=== PATIENT | male | born 1955 | race Caucasian/White ===

== ENCOUNTER 2017-11-17 04:58 | Emergency (ER) | payer MEDICARE ==
[~2017-11-17] VITALS: Ht 172.7 cm; Wt 79.5 kg
[2017-11-17] MEDS ORDERED: KETOROLAC 30 MG/1 ML ONE (05:24)
[2017-11-17] MEDS ORDERED: ONDANSETRON ODT 4 MG ONE (05:26)
[2017-11-17] MEDS ORDERED: SODIUM CHLORIDE 0.9% 1,000ML IVBOLUS ONE (05:30)
[2017-11-17] MEDS ORDERED: SODIUM CHLORIDE FLUSH 10ML SYR IVF ONE (05:30)
[2017-11-17] MEDS ORDERED: KETOROLAC 30 MG/1 ML IVPush ONE (05:30)
[2017-11-17] MEDS ORDERED: ONDANSETRON ODT 4 MG PO ONE (05:30)
[2017-11-17 05:54] LABS: BASOPHILS # (AUTO) 0.02 x10^3/uL (0-0.1); BASOPHILS % (AUTO) 0 % (0-1); EOSINOPHILS # (AUTO) 0.11 x10^3/uL (0-0.4); EOSINOPHILS % (AUTO) 1 % (1-7); LYMPHOCYTES # (AUTO) 1.96 x10^3/uL (1-3.4); LYMPHOCYTES % (AUTO) 13 % (22-44); MD NO; MEAN CORPUSCULAR HEMOGLOBIN 31.3 pg (27.5-34.5); MEAN CORPUSCULAR HGB CONC 33.7 g/dL (33.2-36.2); MEAN PLATELET VOLUME 7.2 fL (7.4-10.4); MONOCYTES # (AUTO) 0.96 x10^3/uL (0.2-0.8); MONOCYTES % (AUTO) 6 % (2-9); NEUTROPHILS # (AUTO) 12.08 x10^3/uL (1.8-6.8); NEUTROPHILS % (AUTO) 80 % (42-75); PLATELET COUNT 264 x10^3/uL (130-400); RED BLOOD COUNT 5.42 x10^6/uL (4.38-5.82); RED CELL DISTRIBUTION WIDTH 13.5 % (9.4-14.8)
[2017-11-17 06:04] LABS: ALANINE AMINOTRANSFERASE 116 U/L (12-78); ALBUMIN 3.8 g/dL (3.4-5.0); ANION GAP 9 mmol/L (5-15); CALCIUM 8.4 mg/dL (8.5-10.1); CHLORIDE 106 mmol/L (98-107); CREATININE 0.97 mg/dL (0.7-1.3)
[2017-11-17 06:07] LABS: ALKALINE PHOSPHATASE 106 U/L (45-117); BILIRUBIN,TOTAL 0.7 mg/dL (0.2-1.0); TOTAL PROTEIN 7.3 g/dL (6.4-8.2)
[2017-11-17] MEDS ORDERED: MAALOX/HYOSCYAMINE/LIDOCAINE 45 ML BTL ONE (07:24)
[2017-11-17] MEDS ORDERED: MAALOX/HYOSCYAMINE/LIDOCAINE 45 ML BTL PO ONE (07:30)
[2017-11-17 07:59] LABS: CULTURE INDICATED? NO; MICROSCOPIC NOT IND
[2017-11-17] MEDS ORDERED: OMNIPAQUE 350 MG/ML, 100ML BOTTLE ONE (08:02)
[2017-11-17] MEDS ORDERED: SUCRALFATE 1 GM/10 ML UDC PO STA (09:24)
[2017-11-17 09:34] VITALS: BP 138/84
== END 2017-11-17 09:46 | disposition home or self-care (01) ==
LOC: ED 07:32
DX: R10.13 Epigastric pain (principal); I48.91 Unspecified atrial fibrillation
CPT/HCPCS: 36415; 74021; 74177; 76700; 80053; 81003; 83690; 85025; 93005; 96361; 96374; 99285; J1885; J7030; Q0162; Q9967

== ENCOUNTER → 2018-10-12 | Outpatient (CLI) | payer MEDICARE | END | disposition home or self-care (01) | LOC: CFH 10:53 | PROVIDERS: ATTEND Nurse Practitioner Family | DX: M81.0 Age-related osteoporosis without current pathological fracture (principal); M85.88 Other specified disorders of bone density and structure, other site | CPT/HCPCS: 77080 ==